=== PATIENT | female | born 2000 | race Caucasian/White ===

== ENCOUNTER 2022-05-20 01:40 | Emergency (ER) | payer BC ==
[~2022-05-20] VITALS: Ht 170.2 cm; Wt 65.8 kg
[2022-05-20 01:58] VITALS: BP_SYST 138
[2022-05-20] MEDS ORDERED: DEXAMETHASONE SOD PHOSPHATE 10 MG/ML VIAL PO ONE (03:45)
[2022-05-20] MEDS ORDERED: KETOROLAC TROMETHAMINE 15 MG VIAL IM ONE (03:45)
[2022-05-20] MEDS ORDERED: IBUP-1969 PO (04:10)
[2022-05-20 04:30] VITALS: BP_SYST 135
== END 2022-05-20 04:30 | disposition home or self-care (01) ==
LOC: SED 01:40
DX: J06.9 Acute upper respiratory infection, unspecified (principal); J02.9 Acute pharyngitis, unspecified; R09.81 Nasal congestion; R05.9 Cough, unspecified; Z79.899 Other long term (current) drug therapy; Z20.822 Contact with and (suspected) exposure to COVID-19
CPT/HCPCS: 99283; 87426; 36415; 81025; 96372; 87804 ×2; J1100; J1885